=== PATIENT | female | born 1990 | race Hispanic/Latino ===

== ENCOUNTER 2017-06-23 04:18 | Emergency (ER) | payer OTHER, SELFPAY ==
[2017-06-23 05:38] LABS: BHCG - Serum Negative (NEGATIVE); Pregs Control Background? CLEAR/WHITE (CLR/WHITE); Pregs Control Bar Appear? YES (CONTROL BAR)
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
== END 2017-06-23 08:00 | disposition home or self-care (01) ==
LOC: MADERS 04:18
DX: S12.400A Unspecified displaced fracture of fifth cervical vertebra, initial encounter for closed fracture (principal); S00.83XA Contusion of other part of head, initial encounter; S40.212A Abrasion of left shoulder, initial encounter; V49.9XXA Car occupant (driver) (passenger) injured in unspecified traffic accident, initial encounter
CPT/HCPCS: 36415; 70450; 72125; 72128; 84703

== ENCOUNTER 2017-07-10 10:24 | Outpatient (CLI) | payer OTHER ==
--- NOTE | 2017-07-10 13:14 | CT ---
EXAM: CERVICAL SPINE CT WITHOUT CONTRAST: COMPARISON: 06/23/17. HISTORY: Followup cervical spine fracture. TECHNIQUE: A cervical spine CT is performed without contrast. Reformatted images are submitted for interpretat ion. FINDINGS: Straightening of normal cervical lordosis is redemonstrated. No prevertebral soft tissue swelling. No epidural hematoma. No significant central canal stenosis or foraminal narrowing. Evaluation is limited by technique. Visualized soft tissue neck structures, upper mediastinum, and lung apices are unremarkable. Redemonstration of a fracture involving the anterior inferior C5 vertebral body. Additional cervica l spine fractures are not appreciated. When compared to the previous examination, the extent of fra cture has not changed. There is no significant bone remodeling. With regard to the posterior C6 ve rtebral body, a definite fracture is difficult to appreciable. There is a subtle defect in the post erior C6 vertebral body likely due to a chronic process, rather than an acute fracture. IMPRESSION: 1. No definite fracture at C6. 2. Redemonstration of a teardrop fracture involving the anterior inferior C5 vertebral body. No si gnificant change. POS: [facility]
== END 2017-07-10 10:25 | disposition home or self-care (01) ==
LOC: MADCT 10:24
PROVIDERS: ATTEND Family Medicine
DX: S12.9XXA Fracture of neck, unspecified, initial encounter (principal); S12.400D Unspecified displaced fracture of fifth cervical vertebra, subsequent encounter for fracture with routine healing
CPT/HCPCS: 72125